=== PATIENT | male | born 1950 | race Caucasian/White ===

== ENCOUNTER 2018-07-15 12:15 | Emergency (ER) | payer OTHER, SELFPAY ==
[2018-07-15 12:17] VITALS: BP 127/74; PULSE 101; RESP 16; TEMP 37.1; O2SAT 95; BMI 27.9
--- NOTE | 2018-07-15 13:07 | ED.VISSUMM ---
- ER Visit Summary Date of Service: 07/15/18 Chief Complaint: Right index finger laceration History of Present Illness: The patient is a 68 M who has an index finger laceration. A wrench slipped and he hit his hand and finger. He sustained a laceration to the base of the nail in the right index finger. His tetanus is up-to-date. He removed at the base of the nail and it started bleeding. Physical Examination: Vital signs reviewed. Right hand exam reveals a laceration and missing tissue at the base of the right index finger on the ulnar side. No active bleeding at this time. Test Results: [] Emergency Department Course and Treatment: A digital block was performed using 1% lidocaine. Under sterile and good lighting conditions, I was able to see that the right nailbed has been removed and the nail was taken off by the patient himself. There is no linear laceration. I then reapproximated the nailbed and tacked down with 1 6?0 simple nylon suture. Patient will keep this area clean and dry. He will follow-up with his doctor in 1 week for a recheck of his wound as well as suture removal. Treatment Plan: [] Disposition: Discharge Impression: Right index finger nailbed laceration, 1 cm Laceration repair by ED physician This note was generated with [employer] dictation software. It may contain incorrect words, spelling, and punctuation that were not noted in review of the chart prior to signing ED Disposition - Plan for ED Patient: Referrals: Care Physician,No Primary [Primary Care Provider] -
--- NOTE | 2018-07-15 13:08 | ED.DEP ---
ED Disposition - Plan for ED Patient: Disposition: Home or Assisted Living Instructions: ED Laceration All Referrals: Care Physician,No Primary [Primary Care Provider] -
[2018-07-15 13:50] VITALS: RESP 18
== END 2018-07-15 13:54 | disposition home or self-care (01) ==
PROVIDERS: Emergency Provider Emergency Medicine
DX: S61.210A Laceration without foreign body of right index finger without damage to nail, initial encounter (principal); W22.8XXA Striking against or struck by other objects, initial encounter
CPT/HCPCS: 12001; 99283

== ENCOUNTER 2019-09-29 13:34 | Emergency (ER) | payer OTHER, SELFPAY ==
[2019-09-29 13:35] VITALS: BP 126/79; PULSE 84; RESP 16; TEMP 36.9; O2SAT 96; BMI 26.0
--- NOTE | 2019-09-29 14:07 | RAD_ITS ---
STUDY: X-RAY CHEST REASON FOR EXAM: Male, 69 years old. SYNCOPAL EPISODE TECHNIQUE: PA and lateral views of the chest. COMPARISON: None. FINDINGS: EKG electrodes are seen. Hyperinflation There is no demonstrated pleural abnormality. Normal size heart. Normal mediastinum and garrick. There is prominence of the pulmonary hilar arteries without peripheral pulmonary vascular congestion, suggesting pulmonary hypertension. There is atherosclerotic calcification of the aortic arch with tortuosity. There are mild degenerative changes of the visualized thoracic spine. Normal visualized ribs, clavicles, and shoulders. There is no demonstrated abnormality of the visualized soft tissue structures of the upper abdomen. RAD/Chest PA and Lateral IMPRESSION: The lungs are clear. Prominence of the central pulmonary arteries. Electronically Signed: Tarun Lyles, at 15:17 EDT , Service support ,
--- NOTE | 2019-09-29 14:07 | EKG12_ITS ---
Test Reason : SYNCOPE Blood Pressure : / mmHG Vent. Rate : 074 BPM Atrial Rate : 074 BPM P-R Int : 182 ms QRS Dur : 080 ms QT Int : 388 ms P-R-T Axes : 042 -03 053 degrees QTc Int : 430 ms Normal sinus rhythm Normal ECG Confirmed by YULIA PENG ([id number]), scientific publications editor KAYLIN STEWART ([id number]) on 10/04/2019 2:17:44 PM Referred By: SHAQUILLE Confirmed By:YULIA PENG
--- NOTE | 2019-09-29 14:21 | ED.DCSUM_ITS ---
History of Present Illness Chief Complaint: Syncope Informant: Patient Narrative: Patient is a 69-year-old male with a history of hypothyroidism who presents to the emergency department for a syncopal episode. He denies ever having this happen recently except whenever he was 16 years old. He states that he got up from sitting walked around grabbed his head and went to give his a hug. While she was hugging him he ended up passing out. states that he fell forward and hit against the wall before falling to the ground. The whole episode lasted approximately 2 minutes. He states he has felt tired the past day but otherwise denies any other symptoms. He denies any chest pain, shortness of breath or palpitations. He denies any headache or vision changes at this time. No weakness or loss of sensation in any extremity. No neck pain or back pain. Denies any injury from the fall. He is not on any anticoagulation. He denies any leg swelling or calf pain. History of heart attacks, strokes or DVT/PE. He denies getting lightheaded when moving from a sitting to standing any other time. He has a former smoking history, drinks rarely and denies any drug use. Past Medical History - Allergies and Home Meds Allergies/Adverse Reactions: Allergies No Known Allergies Allergy (Verified 07/15/18 12:18) Primary Care Physician: Narendra Yanez PA [Primary Care Provider] - As soon as possible Prior records reviewed: Yes Past Medical History: - - Thyroidectomy Smoking Status: Former smoker Alcohol: Rare Drugs: None Review of Systems All systems negative except as indicated General: Denies: Chills, Fever, Sweats Eyes: Denies: Visual changes - bilaterally, Diplopia ENT: Denies: Rhinorrhea, Sore throat Cardiovascular: Denies: Chest pain, Palpitations Respiratory: Denies: Dyspnea, Cough, Dyspnea on exertion Gastrointestinal: Reports: Nausea - Resolved. Denies: Abdominal pain, Vomiting, Diarrhea Genitourinary: Denies: Dysuria, Hematuria, Frequency Musculoskeletal: Denies: Neck pain, Back pain, Extremity Pain Skin: Denies: Rash, Wounds Neurological: Denies: Headache, Weakness, Numbness Physical Exam Vital Signs/Narrative: Vital Signs Temp Pulse Resp BP Pulse Ox 09/29/19 13:35 98.4 F 84 16 126/79 H 96 Inital Vital Signs reviewed: Yes General: Well nourished, Well developed, No Acute Distress Head: Normocephalic, Atraumatic Eyes: Perrl, EOMI ENT: Moist mucous membranes, No rhinorrhea Neck: Supple, Nontender Cardiovascular: Regular rate, Regular rhythm, No murmurs Respiratory: No distress, CTA bilaterally, Chest nontender Abdomen: Soft, Nontender, Nondistended, Normal bowel sounds Back: Nontender, Normal Inspection Extremities: Nontender, No edema. Negative for: Calf Tenderness Skin: Normal color, No rash Neurological: Alert, Oriented x3, Cranial nerves II-XII grossly intact, Normal Strength, Normal Sensation Psychological: Normal affect, Normal Mood Diagnostic/Tx/Re-eval - EKG Initial EKG Interpretation: - - Rate of 74 bpm and normal sinus rhythm. Normal intervals. Normal axis. No ST elevations or depressions appreciated. No T wave abnorm alities. No prior EKG for comparison. - Medical Decision Making Patient presents to the emergency department after syncopal episode. This time he is asymptomatic. Upon arrival to the ED vital signs within normal limits. Physical exam is benign. Will check basic lab work along with cardiac work-up. Will do orthostatic vital signs. Patient's lab work did not reveal any significant acute abnormality. Initial troponin is negative. Chest x-ray did not show any acute cardiopulmonary abnormality. He is observed in the ED for over 4 hours and did not have any repeat symptoms. No arrhythmia on telemetry. I did recommend hospitalization as we do not have an explanation for his syncopal episode today. Since he is completely back to his baseline patient does not want to stay and is preferring to go home. Since the patient has absolutely no cardiac risk factors as well as no history of cardiac disease I believe that this is reasonable. I have very low concern for PE as he is not hypoxic or tachycardic. The whole episode resolved within a few minutes. I did call and discuss this with his PCP who is going to arrange an echocardiogram and an outpatient stress test. He understands he is to return to the emergency department if he has any repeat symptoms or develops any chest pain, shortness of breath or heart palpitations. At this time will discharge home in stable condition. He understands and is agreeable this plan. ED Disposition - Plan for ED Patient: Disposition: Home or Assisted Living Diagnosis: Syncope and collapse Instructions: ED Fainting Uncertain Cause Referrals: Narendra Yanez PA [Primary Care Provider] - As soon as possible
[2019-09-29 14:47] VITALS: BP 122/83; PULSE 73; RESP 19; O2SAT 95
[2019-09-29 15:02] VITALS: BP 120/84; BP 123/83; BP 128/83; PULSE 71; PULSE 77; PULSE 82
[2019-09-29 15:03] LABS: Absolute Lymphocyte Count 0.76 X10^3/uL (0.83-4.51); Absolute Neutrophil Count 4.6 X10^3/uL (2.0-7.7); Basophil# 0.03 X10^3/uL; Basophil% 0.5 % (0-1); Eosinophil# 0.09 X10^3/uL; Eosinophils% 1.5 % (0-5); Hematocrit 41.1 % (40-54); Lymphocyte # 0.76 X10^3/ul (4.0); Lymphocyte % 12.7 % (19-41); Mean Corp Hgb Conc 34.1 g/dL (32-36); Mean Corpuscular Hgb 30.5 pg (27.0-32.0); Mean Corpuscular Volume 89.5 fL (80-94); Mean Platelet Vol. 8.4 fl (6.2-12.0); Monocyte# 0.48 X10^3/uL; NRBC Flagged by Analyzer 0 % (0-5); Neutrophil # 4.61 X10^3/uL (2.7-7.7); Platelet Count 175 K/mm3 (150-450); RBC Distribution Width CV 12.9 % (11.6-14.6); RBC Distribution Width SD 42.1 fl (35.1-43.9); Red Blood Count 4.59 M/mm3 (4.6-6.2)
[2019-09-29 15:19] LABS: Anion Gap 5 (5-15); BUN 18 mg/dL (7-18); BUN/Creat Ratio 22.9 RATIO (10-20); Calcium,Total 8.2 mg/dL (8.5-10.1); Chloride 108 mmol/L (98-107); Creatinine, Serum 0.79 mg/dL (0.70-1.30); EST Glomerular Filtration Rate 104 mL/min (>60); Est Glom Filt Rate - Afr Amer 126 mL/min (>60); Glucose 129 mg/dL (74-106); Magnesium 2.2 mg/dL (1.6-2.6); Potassium 3.9 mmol/L (3.5-5.1); Sodium Level 141 mmol/L (136-145)
--- NOTE | 2019-09-29 16:59 | NURSING ---
CALLED [facility] FOR EUGENE HENNING. RN SAID DR VENTURA IS [employer] AND IS ON A VIDEO CALL. SHE WILL HAVE HER CALL US WHEN DONE
--- NOTE | 2019-09-29 17:09 | NURSING ---
CASER SENT CALL TO DR VENTURA'S CELL. LEFT MESSAGE TO CALL ER
--- NOTE | 2019-09-29 17:48 | NURSING ---
CALLED AND LEFT MESSAGE ON DR SALCIDO PHONE
--- NOTE | 2019-09-29 18:01 | NURSING ---
CALLED OFFICE, DR VENTURA FOR DR OAKLEY
[2019-09-29 18:04] VITALS: BP 113/90; PULSE 70; RESP 18; O2SAT 97
== END 2019-09-29 18:05 | disposition home or self-care (01) ==
PROVIDERS: Emergency Provider Emergency Medicine; PCP Physician Assistant
DX: R55 Syncope and collapse (principal); E03.9 Hypothyroidism, unspecified; I25.2 Old myocardial infarction; Z86.73 Personal history of transient ischemic attack (TIA), and cerebral infarction without residual deficits; Z87.891 Personal history of nicotine dependence
CPT/HCPCS: 71046; 80048; 83735; 84484; 85025; 93005; 99284; A4216

== ENCOUNTER → 2020-10-10 15:36 | Outpatient (CLI) | payer OTHER, SELFPAY ==
--- NOTE | 2020-10-10 | IMM_PTH ---
PATIENT: ADELAIDA FERMIN LOC: [facility] U#:[id number] AGE/SX: 74/M ROOM: RE10/10/[address]: Dr. German Niño MD : 1950 BED: DIS: SPEC #: [id number] RECD: 10/11/20 09:30 STATUS: TAWANNA REQ #: [id number] BARBARA: 10/10/20 00:[address]: German Niño DEPT: IMMUNOHISTOCHEMISTRY RECD BY: Sammi Donohue ENTERED: 10/11/20 09:35 SP TYPE: IMMUNO OTHR DR: OCTAVIA Gregory Tissues: A - Stomach, NOS Procedures: H Pylori (initial) PHYSICIAN & INSTITUTION [place] [id number] SPECIMEN INFORMATION: Tissue Source: A ? Antral biopsy Clinical Info: Epigastric discomfort, bloating Specimen Number: [id number] CPT code: 11186 METHODOLOGY: Deparaffinized sections of prefer/formalin-fixed tissue or PAP/DQ stained slides are incubated with monoclonal/polyclonal antibodies/oligonucleotide probes. Localization is made via biotin free immunoperoxidase method. Appropriate controls are performed and reacted as expected. Results on target cell population are indicated in the following table: RESULTS: ANTIBODY / CLONE RESULT Block A H Pylori (polyclonal) negative These tests were developed and their performance characteristics determined by [facility]. They may not have been cleared or approved by the [place]. Food and Drug Administration. The FDA has determined that such clearance or approval is not necessary. INTERPRETATION: A. Antral biopsy: Negative for Helicobacter pylori organisms. JAY:casey 10/12/2020
--- NOTE | 2020-10-10 | EGD_PTH ---
PATIENT: ADELAIDA FERMIN LOC: [facility] U#:[id number] AGE/SX: 74/M ROOM: RE10/10/[address]: Dr. German Niño MD : 1950 BED: DIS: SPEC #: [id number] RECD: 10/10/20 14:59 STATUS: TAWANNA KUMAR #: [id number] BARBARA: 10/10/20 00:[address]: German Niño DEPT: SURGICAL PATHOLOGY RECD BY: Freya Aguilar ENTERED: 10/11/20 09:24 SP TYPE: EGD BIOPSY OTHR DR: OCTAVIA Gregory Tissues: A - Gastric mucous membrane B - Esophagus, NOS C - Esophagus, NOS D - Ileum, NOS E - COLON BIOPSY Procedures: Special Stain Group II Surgery Specimen Level IV Alcian Blue/PAS (control) HEADER OPERATION: EGD / colonoscopy PRE-OP DIAGNOSIS: Epigastric discomfort, bloating TISSUE SUBMITTED: A - Antral biopsy H/H, B - Distal esophageal biopsy, C - Mid esophageal biopsy, D - Terminal ileum biopsy, E - Random colon biopsies MICROSCOPIC DIAGNOSIS A. Antral biopsy: Moderate gastritis. See microscopic description and comment. B. Distal esophageal biopsy: A fragment of gastroesophageal mucosa with mild to moderate chronic inflammation. Intestinal metaplasia (goblet cell metaplasia) is not identified. See comment. C. Mid esophageal biopsy: A fragment of squamous epithelium, no pathologic diagnosis. D. Terminal ileum, biopsy: A fragment of small intestinal mucosa, no pathologic diagnosis. E. Colon, random biopsy: Fragments of colonic mucosa, no pathologic diagnosis. SJ:casey 10/12/2020 COMMENT A. The results of immunohistochemistry for Helicobacter pylori will be reported separately ([id number]). B. Alcian blue/PAS stain with matched control is used in the evaluation of the specimen. MICROSCOPIC DESCRIPTION Slides are reviewed. A. The specimen shows fragments of gastric mucosa with chronic inflammatory cell infiltrates in the lamina propria consisting of lymphocytes and plasma cells, consistent with moderate chronic gastritis. GROSS DESCRIPTION A - Received in fixative is one container labeled with the patient's name and designated antral biopsy. The specimen consists of one irregular fragment of light will soft tissue that measures 0.3 x 0.3 x 0.1 cm. The specimen is totally submitted in one cassette. B - Received in fixative is one container labeled with the patient's name and designated distal esophageal biopsy. The specimen consists of one irregular fragment of light will soft tissue that measures 0.4 x 0.3 x 0.1 cm. The specimen is totally submitted in one cassette. C - Received in fixative is one container labeled with the patient's name and designated mid esophageal biopsy. The specimen consists of one irregular fragment of light will soft tissue that measures 0.4 x 0.3 x 0.1 cm. The specimen is totally submitted in one cassette. D - Received in fixative is one container labeled with the patient's name and designated terminal ileum biopsy. The specimen consists of one irregular fragment of light will soft tissue that measures 0.3 x 0.3 x 0.1 cm. The specimen is totally submitted in one cassette. E - Received in fixative is one container labeled with the patient's name and designated random colon biopsy. The specimen consists of two irregular fragments of light will soft tissue that in aggregate measure 0.8 x 0.3 x 0.1 cm. The specimen is totally submitted in one cassette. / SJ:rg 10/11/20 TC:2 CPT: 39377 x5, 29475
== END ==
PROVIDERS: PCP Physician Assistant; Referring Provider Surgery; Visit Provider Surgery
DX: K29.70 Gastritis, unspecified, without bleeding (principal)
CPT/HCPCS: 88305; 88313; 88342

== ENCOUNTER → 2024-11-16 | Outpatient (CLI) | payer OTHER, SELFPAY | END | disposition home or self-care (01) | PROVIDERS: PCP Physician Assistant; Visit Provider Registered Nurse | DX: G47.33 Obstructive sleep apnea (adult) (pediatric) (principal) | CPT/HCPCS: 95810 ==